=== PATIENT | female | born 1995 | race African-American/Black ===

== ENCOUNTER 2024-11-07 12:03 | Emergency (ER) | payer OTHER ==
[~2024-11-07] VITALS: Ht 162.6 cm; Wt 89.0 kg
[2024-11-07 13:53] LABS: BASOPHILS % (AUTO) 0.8 % (0.0-2.0); EOSINOPHILS % (AUTO) 0.5 % (1.0-6.0); HEMATOCRIT 45.7 % (36-46); HEMOGLOBIN 15.5 g/dL (12.0-16.0); LYMPHOCYTES # (AUTO) 1.2 K/uL (1.0-4.8); MEAN CORPUSCULAR HEMOGLOBIN 28.1 pg (26.0-34.0); MEAN CORPUSCULAR HGB CONC 33.9 G/dL (31.0-37.0); MEAN CORPUSCULAR VOLUME 83 fL (80-100); MONOCYTES # (AUTO) 0.6 K/uL (0.1-1.0); NEUTROPHILS # (AUTO) 4.3 K/uL (1.8-7.7); NEUTROPHILS % (AUTO) 69.7 % (40.0-70.0); PLATELET COUNT (AUTO) 255 K/uL (150-450); RED BLOOD CELL COUNT(AUTO) 5.52 MIL/uL (4.00-5.20); RED CELL DISTRIBUTION WIDTH 13.4 % (11.5-14.5); WHITE BLOOD COUNT (AUTO) 6.2 K/uL (4.5-11.0)
[2024-11-07 13:58] LABS: ANION GAP 12 mmol/L (8-16); CALCIUM, TOTAL 9.8 mg/dL (8.8-10.5); CARBON DIOXIDE 27 mmol/L (22-29); CHLORIDE 104 mmol/L (98-107); CREATININE 0.86 mg/dL (0.60-1.30); GLOMERULAR FILTR. RATE CALC > 60 mL/min (>60); GLUCOSE,RANDOM 82 mg/dL (70-110); POTASSIUM 3.5 mmol/L (3.5-5.1); SODIUM SERUM 143 mmol/L (136-145); UREA NITROGEN, BLOOD 10 mg/dL (7-18)
[2024-11-07 14:07] LABS: TROPONIN I-HIGH SENSITIVITY Less Than 4 ng/L (<51)
[2024-11-07 14:30] VITALS: BP 119/67; PULSE 77; RESP 18; TEMP 98.105288; O2SAT 98
== END 2024-11-07 15:05 | disposition home or self-care (01) ==
LOC: EMS 12:25
DX: R20.2 Paresthesia of skin (principal)
CPT/HCPCS: 80048; 84484; 84703; 85025; 93005; 99284